=== PATIENT | female | born 1965 | race Caucasian/White ===

== ENCOUNTER 2023-02-15 13:07 | Outpatient (OUT) | payer BC, SELFPAY ==
--- NOTE | 2023-02-15 13:22 | ECG_ITS ---
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
--- NOTE | 2023-02-15 14:30 | P.GSHP_ITS ---
History of Present Illness History of Present Illness Chief complaint: complex endometrial hyperplasia with atypia Narrative: Patient presents for preadmission testing. The patient states she had an episode of vaginal bleeding and she has been in menopause for six years. She states she had a pelvic exam with her regional marketing manager and then had a transvaginal ultrasound which showed some thickening of the uterine lining. The patient denies any abdominal pain, nausea, vomiting, or any other complaints. Review of Systems ROS Narrative REVIEW OF SYSTEMS: Negative except as stated in HPI, ten or more systems reviewed. Constitutional: No fever , chills, weakness ENT: No sore throat or epistaxis Cardiovascular: No edema, chest pain, palpitations, or activity intolerance Respiratory: No shortness of breath, cough, or wheezing Musculoskeletal: No joint pain or swelling Gastrointestinal: No abdominal pain, constipation, diarrhea, or vomiting Genitourinary: No dysuria or hematuria Neurological: No numbness, tingling, weakness, or headache Psychiatric: No mood changes PFSH PFS Medical History (Updated 02/15/23 @ 14:05 by Shani Angel RN) Rotator cuff dysfunction ?M67.919 - Unspecified disorder of synovium and tendon, unspecified shoulder (ICD-10) Post-menopausal bleeding ?N95.0 - Postmenopausal bleeding (ICD-10) Hypertension ?I10 - Essential (primary) hypertension (ICD-10) Cervical disc herniation ?M50.20 - Other cervical disc displacement, unspecified cervical region (ICD- 10) Xanthelasma ?H02.60 - Xanthelasma of unspecified eye, unspecified eyelid (ICD-10) Tobacco dependence syndrome ?F17.200 - Nicotine dependence, unspecified, uncomplicated (ICD-10) Squamous cell carcinoma of skin ?C44.92 - Squamous cell carcinoma of skin, unspecified (ICD-10) Major depression ?F32.9 - Major depressive disorder, single episode, unspecified (ICD-10) Hyperlipidemia ?E78.5 - Hyperlipidemia, unspecified (ICD-10) Anxiety ?F41.9 - Anxiety disorder, unspecified (ICD-10) Iron deficiency anemia ?D50.9 - Iron deficiency anemia, unspecified (ICD-10) Anemia ?D64.9 - Anemia, unspecified (ICD-10) Vitamin D deficiency ?E55.9 - Vitamin D deficiency, unspecified (ICD-10) Multiple thyroid nodules ?E04.2 - Nontoxic multinodular goiter (ICD-10) Enlarged thyroid ?E04.9 - Nontoxic goiter, unspecified (ICD-10) Diabetes mellitus ?E11.9 - Type 2 diabetes mellitus without complications (ICD-10) Hypothyroid ?E03.9 - Hypothyroidism, unspecified (ICD-10) Gastroesophageal reflux disease with esophagitis ?K21.00 - Gastro-esophageal reflux disease with esophagitis, without bleeding (ICD-10) Dysphagia ?R13.10 - Dysphagia, unspecified (ICD-10) Essential hypertension ?I10 - Essential (primary) hypertension (ICD-10) Uterine fibroid ?D25.9 - Leiomyoma of uterus, unspecified (ICD-10) Thickened endometrium ?R93.89 - Abnormal findings on diagnostic imaging of other specified body structures (ICD-10) Complex endometrial hyperplasia with atypia ?N85.02 - Endometrial intraepithelial neoplasia [EIN] (ICD-10) Surgical History (Updated 02/15/23 @ 14:05 by Shani Angel RN) History of colonoscopy ?Z98.890 - Other specified postprocedural states (ICD-10) History of neurologic surgery ?Z98.890 - Other specified postprocedural states (ICD-10) H/O vascular surgery ?Z98.890 - Other specified postprocedural states (ICD-10) Hx of cardiac cath ?Z98.890 - Other specified postprocedural states (ICD-10) History of excision of lesion ?Z98.890 - Other specified postprocedural states (ICD-10) ?Z87.2 - Personal history of diseases of the skin and subcutaneous tissue (ICD-10) Hx of fusion of cervical spine ?Z98.1 - Arthrodesis status (ICD-10) Family History (Updated 02/15/23 @ 14:05 by Shani Angel, RACHEL) Other Family history of CHF (congestive heart failure) Family history of cancer Family history of diabetes mellitus Family history of hypertension Family history of stroke Heart disease Pulmonary embolism Social History (Updated 02/15/23 @ 13:39 by Shani Angel, RACHEL) Within the past year, how often did you have a drink containing alcohol: never Score interpretation: A score less than 3 is consistent with normal alcohol consumption. 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 Highest level of school completed/degree received: Associate degree: occupational, technical, vocational program Meds Home Medications and Allergies Home Medications Medication Instructions Recorded Confirmed Type bupropion HCl 300 mg 24 hr tablet, 300 mg PO DAILY 02/15/23 02/15/23 History extended release esomeprazole magnesium 20 mg 20 mg PO DAILY 02/15/23 02/15/23 History capsule,delayed release (Nexium) tirzepatide 5 mg/0.5 mL 7.5 mg subcut .weekly 02/15/23 02/15/23 History subcutaneous pen injector (Mounjaro) Allergies Allergy/AdvReac Type Severity Reaction Status Date / Time pravastatin AdvReac Severe muscle ache Verified 02/15/23 13:41 Exam Narrative Exam Narrative: Constitutional: Awake, alert, comfortable, well-appearing, nontoxic, interactive, vital signs as charted Head: Normocephalic, atraumatic Neck: Supple, normal appearance, normal range of motion, no meningeal signs, no lymphadenopathy Respiratory: No respiratory distress, breath sounds clear Cardiovascular: Regular rate and rhythm, strong and regular heart tones Abdomen: Nontender, normal bowel sounds, soft, no CVA tenderness Musculoskeletal: Normal gait, no swelling or edema Skin: No rashes or induration, no lesions, only visible skin inspected Neuro: No neurological deficits, normal sensation Psychiatric: Oriented ?3, normal affect Assessment and Plan Assessment and Plan (1) Post-menopausal bleeding: (2) Uterine fibroid: (3) Thickened endometrium: (4) Complex endometrial hyperplasia with atypia: Plan D and C, hysteroscopy, possible Myosure scheduled with Dr. Jones 02/23/2023. The patient had an abnormal EKG here in preadmission testing today showing a first- degree AV block, this was compared to her previous EKG from 2019 and there are changes noted. The EKG was faxed to Dr. Jones's office and the manager trade marketing was called and notified of the abnormal EKG. The patient has no dyspnea on exertion, shortness of breath, chest pain, or any cardiac complaints.
[2023-02-15 14:34] LABS: Anion Gap 9.9; BUN Creatinine Ratio 9.3; Calcium 8.9 mg/dL (8.5-10.1); Carbon Dioxide 30.1 mmol/L (21.0-32.0); Chloride 104 mmol/L (98-107); Estimated GFR (African America >60 (>=60); Estimated GFR (Non-African Ame 52 (>=60); Glucose 94 mg/dL (74-106); Sodium 140 mmol/L (136-145)
== END 2023-02-15 13:08 | disposition home or self-care (01) ==
PROVIDERS: PCP Family Medicine; Visit Provider Obstetrics & Gynecology
DX: Z01.810 Encounter for preprocedural cardiovascular examination (principal); Z01.812 Encounter for preprocedural laboratory examination; Z01.818 Encounter for other preprocedural examination; N85.02 Endometrial intraepithelial neoplasia [EIN]; R93.89 Abnormal findings on diagnostic imaging of other specified body structures; D25.9 Leiomyoma of uterus, unspecified
CPT/HCPCS: 80048; 93005; G0463

== ENCOUNTER 2023-03-16 08:45 | Outpatient (OUT) | payer OTHER, BC, SELFPAY ==
--- OUTSIDE RECORDS SUMMARY | 2023-03-16 08:48 | XMS_ITS | CCD ---
Author Name Unknown Address [address] [place] [address] Organization [facility] Care Team Providers Care Floor Care Technician Name Role Phone Isra Joiner Jr Attending Unavailable Isra Joiner Jr Admitting Unavailable Ai Tom Primary Care Unavailable AI TOM Primary Care Unavailable CURT ALBRIGHT Attending Unavailable LUZ ELENA PEREZ Attending Unavailable LUZ ELENA PEREZ Referring Unavailable AI TOM Primary Care Unavailable Allergies Allergy Classification Reported Allergen(s) Allergy Type Date of Onset Reaction(s) Facility (1 source) Pravastatin; Translations: [PRAVASTATIN] Drug Allergy 09-24-2020 [facility] Problems Problem Classification Problem Date Documented Da te Episodic/Chronic Gastrointestinal hemorrhage (2 sources) Rectal hemorrhage Onset: 02-25-2023 Episodic Noninfectious gastroenteritis (1 source) Noninfective gastroenteritis and colitis, unspecified; Translations: [Noninfective gastroenteritis and colitis, unspecified] Onset: 02-25-2023 Episodic Unclassified (1 source) Other specific joint derangements of right shoulder, not elsewhere classified; Translations: [Other specific joint derangements of right shoulder, not elsewhere classified] Onset: 03-31-2022 Results Test Name Value Interpretation Reference Range Facility CBC AND AUTO DIFFon 02-25-19 ABSOLUTE BASOPHIL 0.1 X10E9/L Normal 0.0-0.2 [facility] Comment on above: Performed By: #### C MP, 3040-3, 51024-0, CBCA #### [facility] ([id number]) [address] [facility], [place] [address] ABSOLUTE NEUTROPHIL 12.1 X10E9/L High 1.5-6.6 [facility] Comment on above: Performed By: #### C INOCENCIA, 3040-3, 40590-3, CBCA #### [facility] ([id number]) [address] [place] [address] 77284 Basophils/100 WBC (Bld) 0.6 % Normal [facility] Comment on above: Performed By: #### C INOCENCIA, 0-3, 84633-9, CBCA #### [facility] ([id number]) [address] [place] [address] 23299 Eosinophils (Bld) [#/Vol] 0.1 10*3/uL Normal 0.0-0.4 [facility] Comment on above: Performed By: #### C INOCENCIA, 3039-3, 29391-0, CBCA #### [facility] ([id number]) [address] [place] [address] 98025 Eosinophils/100 WBC (Bld) 0.8 % Normal [facility] Comment on above: Performed By: #### C INOCENCIA, 3039-3, 73767-4, CBCA #### [facility] ([id number]) [address] [place] [address] 99141 Erythrocyte distribution width (RBC) [Ratio] 13.3 % Normal 11.5-15.0 [facility] Comment on above: Performed By: #### C INOCENCIA, 0-3, 44455-8, CBCA #### [facility] ([id number]) [address] [place] [address] 92211 Hematocrit (Bld) [Volume fraction] 41.2 % Normal 35-47 [facility] Comment on above: Performed By: #### C INOCENCIA, 0-3, 59177-7, CBCA #### [facility] ([id number]) [address] [place] [address] 01476 Hemoglobin (Bld) [Mass/Vol] 14.0 g/dL Normal 11.7-15.5 [facility] Comment on above: Performed By: #### C INOCENCIA, 3039-3, 80239-8, CBCA #### [facility] ([id number]) [address] [place] [address] 60912 Lymphocytes (Bld) [#/Vol] 2.1 10*3/uL Normal 1.0-3.5 [facility] Comment on above: Performed By: #### C INOCENCIA, 3039-3, 47421-5, CBCA #### [facility] ([id number]) [address] [place] [address] 89122 Lymphocytes/100 WBC (Bld) 13.8 % Normal [facility] Comment on above: Performed By: #### C INOCENCIA, 3039-04, , CBCA #### [facility] ([id number]) [address] [place] [address] 10676 MCH (RBC) [Entitic mass] 29.7 pg Normal 27-34 [facility] Comment on above: Performed By: #### C INOCENCIA, 3039-04, 62441-7, CBCA #### [facility] ([id number]) [address] [place] [address] 25139 MCHC (RBC) [Mass/Vol] 34.0 g/dL Normal 32-36 [facility] Comment on above: Performed By: #### C INOCENCIA, 3, 08865-0, CBCA #### [facility] ([id number]) [address] [place] [address] 92280 MCV (RBC) [Entitic vol] 87 fL Normal 80-100 [facility] Comment on above: Performed By: #### C INOCENCIA, 3039-3, 68960-1, CBCA #### [facility] ([id number]) [address] [place] [address] 62839 Monocytes (Bld) [#/Vol] 0.9 10*3/uL Normal 0-0.9 [facility] Comment on above: Performed By: #### C INOCENCIA, 3040-3, 19225-6, CBCA #### [facility] ([id number]) [address] [place] [address] 26157 Monocytes/100 WBC (Bld) 6.1 % Normal [facility] Comment on above: Performed By: #### C INOCENCIA, 0-3, 94639-9, CBCA #### [facility] ([id number]) [address] [place] [address] 59129 Neutrophils/100 WBC (Bld) 78.7 % Normal [facility] Comment on above: Performed By: #### C INOCENCIA, 0-3, 19021-9, CBCA #### [facility] ([id number]) [address] [place] [address] [place] [address] Platelet mean volume (Bld) [Entitic vol] 8.1 fL Normal 7-12 [facility] Comment on above: Performed By: #### C INOCENCIA, 0-3, 96663-4, CBCA #### [facility] ([id number]) [address] [place] [address] 89793 Platelets (Bld) [#/Vol] 349 10*3/uL Normal 150-450 [facility] Comment on above: Performed By: #### C INOCENCIA, 0-3, 42556-7, CBCA #### [facility] ([id number]) [address] [place] [address] [place] [address] RBC COUNT 4.73 X10E12/L Normal 3.80-5.20 [facility] Comment on above: Performed By: #### C INOCENCIA, 3040-3, 62844-8, CBCA #### [facility] ([id number]) [address] [place] [address] 98604 WBC (Bld) [#/Vol] 15.4 10*3/uL High 4.0-11.0 [facility] Comment on above: Performed By: #### C INOCENCIA, 3040-3, 31425-3, CBCA #### [facility] ([id number]) [address] [place] [address] 77185 COMPREHENSIVE METABOLIC PANE Jordin 02-25-2023 Albumin [Mass/Vol] 4.3 g/dL Normal 3.2-5.3 [facility] Comment on above: Performed By: #### C INOCENCIA, 3040-3, 99392-8, CBCA #### [facility] ([id number]) [address] [place] [address] 07474 ALP [Catalytic activity/Vol] 47 U/L Normal 39-130 [facility] Comment on above: Performed By: #### C INOCENCIA, 3040-3, 32723-4, CBCA #### [facility] ([id number]) [address] [place] [address] 25978 ALT [Catalytic activity/Vol] 17 U/L Normal 0-31 [facility] Comment on above: Performed By: #### C INOCENCIA, 3040-3, 67149-4, CBCA #### [facility] ([id number]) [address] [place] [address] 40539 Anion gap [Moles/Vol] 9 mmol/L Normal 5-15 [facility] Comment on above: Performed By: #### C INOCENCIA, 3040-3, 48345-2, CBCA #### [facility] ([id number]) [address] [place] [address] 35407 AST [Catalytic activity/Vol] 19 U/L Normal 0-41 [facility] Comment on above: Performed By: #### C INOCENCIA, 3040-3, 70154-6, CBCA #### [facility] ([id number]) [address] [place] [address] 00999 Bilirubin [Mass/Vol] 0.8 mg/dL Normal 0.3-1.2 [facility] Comment on above: Performed By: #### C INOCENCIA, 3040-3, 19083-1, CBCA #### [facility] ([id number]) [address] [place] [address] 55452 Calcium [Mass/Vol] 9.3 mg/dL Normal 8.5-10.5 [facility] Comment on above: Performed By: #### C INOCENCIA, 0-3, 08007-8, CBCA #### [facility] ([id number]) [address] [place] [address] 36508 Chloride [Moles/Vol] 102 mmol/L Normal 98-109 [facility] Comment on above: Performed By: #### C INOCENCIA, 3039-3, 09144-4, CBCA #### [facility] ([id number]) [address] [place] [address] 95464 CO2 [Moles/Vol] 24 mmol/L Normal 22-32 [facility] Comment on above: Performed By: #### Georgi PRO, 0-3, 14619-7, CBCA #### [facility] ([id number]) [address] [place] [address] 06323 Creatinine [Mass/Vol] 0.87 mg/dL Normal 0.40-1.00 [facility] Comment on above: Result Comment: METH OD TRACEABLE TO IDMS STANDARD Performed By: #### C INOCENCIA, 3040-3, 18693-9, CBCA #### [facility] ([id number]) [address] [place] [address] 97333 GFR/1.73 sq M.predicted among non-blacks MDRD (S/P/Bld) [Vol rate/Area] 78 mL/min/{1.73_m2} Normal >59 [facility] Comment on above: Result Comment: Reported eGFR is based on the CKD-EPI 2020 equation that does not use a race coefficient. Performed By: #### C INOCENCIA, 3040-3, 57375-8, CBCA #### [facility] ([id number]) [address] [place] [address] 04313 Glucose [Mass/Vol] 105 mg/dL High 65-99 [facility] Comment on above: Performed By: #### C INOCENCIA, 0-3, 79057-9, CBCA #### [facility] ([id number]) [address] [place] [address] 95985 Potassium [Moles/Vol] 3.6 mmol/L Normal 3.5-5.0 [facility] Comment on above: Performed By: #### C INOCENCIA, 0-3, 84243-3, CBCA #### [facility] ([id number]) [address] [place] [address] 91471 Protein [Mass/Vol] 7.6 g/dL Normal 6.0-8.0 [facility] Comment on above: Performed By: #### C INOCENCIA, 3039-3, 21096-9, CBCA #### [facility] ([id number]) [address] [place] [address] 96685 Sodium [Moles/Vol] 135 mmol/L Normal 134-146 [facility] Comment on above: Performed By: #### C INOCENCIA, 3039-3, 04738-4, CBCA #### [facility] ([id number]) [address] [place] [address] 33023 Urea nitrogen [Mass/Vol] 9 mg/dL Normal 5-23 [facility] Comment on above: Performed By: #### C INOCENCIA, 3040-3, 05468-0, CBCA #### [facility] ([id number]) [address] [place] [address] ABDOMEN AND PELVIS W CONT on 02-25-2023 CT ABDOMEN AND PELVIS W CONT CT ABDOMEN AND PELVIS W CONT CT ABDOMEN AND PELVIS W CONT CLINICAL INFORMATION: 57 years old Female with rectal bleeding and abdominal cramping since 3:00 PM today. TECHNIQUE/PROCEDURE: CT Abdomen and Pelvis with intravenous contrast. All CT scans at this facility use dose modulation, iterative reconstruction, and/or weight based dosing when appropriate to reduce radiation dose to as low as reasonably achievable Contrast: 100 mL Omnipaque 300 Diagnostic quality: Satisfactory COMPARISON: CT abdomen and pelvis without contrast dated 09/01/2008. FINDINGS: Lower lung smith are clear. No pericardial effusion. No focal liver lesion. Gallbladder is present and unremarkable. No biliary dilatation. Adrenals, spleen and pancreas are unremarkable. Small hypoattenuating lesions within the left kidney that are too small to accurately characterize. No renal or ureteral calculi. No hydroureteronephrosis. Urinary bladder is unremarkable. Uterus is present and unremarkable. Mild calcification in the abdominal aorta and iliac arteries without focal dilation or aneurysm. There is narrowing of the proximal celiac trunk with mild poststenotic dilatation. SMA, renal arteries, EDUAR, and iliac arteries are patent. No hiatal hernia. Small and large bowel are normal in caliber. Nonspecific bowel gas pattern. Mild fecal burden. Appendix is present and unremarkable. There is bowel wall thickening and edema with mild pericolic stranding of the large bowel within the distal transverse and proximal descending colons. No evidence of acute diverticulitis. No pneumoperitoneum. Small fat-containing umbilical hernia. Anterior osteophytosis of the lower thoracic spine. Mild degenerative change at the L5-S1 level. No intra-abdominal lymphadenopathy. IMPRESSION: * Bowel wall thickening and edema with mild pericolic stranding of the tegmen of large bowel at the distal transverse and proximal descending colons which may represent infectious/inflammator y colitis. Approved by Resident Mik Madison DO on 02/25/2023 7:14 PM IDavid MD have personally reviewed the image(s) and agree with and/or edited the report Finalized by David Lara MD on 02/25/2023 7:46 PM Normal [facility] LIPASEon 02-25-2023 Lipase [Catalytic activity/Vol] 38 U/L Normal 17-40 [facility] Comment on above: Performed By: #### C , 3040-3, 63564-1, CBCA #### [facility] ([id number]) [address] [place] [address] 31022 Lactate (P shawna) [Moles/Vol]o n 02-25-2023 LACTATE W/REFLEX 1.0 mmol/L Normal 0.4-2.0 [facility] Comment on above: Result Comment: Result did not trigger repeat Lactate, re-order if needed. Performed By: #### C MP, 3040-3, 00323-7, CBCA #### [facility] ([id number]) [address] [place] [address] 51773 YVROSE FECAL OCCULT BLDon 02-25 Hemoglobin.gastroin testinal Ql (Stl) Positive Abnormal NEG [facility] Comment on above: Performed By: #### 2 335-8 #### [facility] ([id number]) [address] [place] [address] 39987 URN MACROSCOPIC NURon 2023 BILIRUBIN YVROSE Negative Normal NEG [facility] Comment on above: Performed By: #### N UM #### [facility] ([id number]) [address] [place] [address] 53650 BLOOD/HGB YVROSE Small Abnormal NEG [facility] Comment on above: Performed By: #### N UM #### [facility] ([id number]) [address] [place] [address] 68865 GLUCOSE YVROSE Negative Normal NEG [facility] Comment on above: Performed By: #### N UM #### [facility] ([id number]) [address] [place] [address] 13737 KETONES YVROSE Negative Normal NEG [facility] Comment on above: Performed By: #### N UM #### [facility] ([id number]) [address] [place] [address] 81263 LEUKOCYTE ESTERASE YVROSE Trace Abnormal NEG [facility] Comment on above: Performed By: #### N UM #### [facility] ([id number]) [address] [place] [address] 81690 NITRITE YVROSE Negative Normal NEG [facility] Comment on above: Performed By: #### N UM #### [facility] ([id number]) [address] [place] [address] 89629 PH YVROSE 6.0 Normal 5.0-8.5 [facility] Comment on above: Performed By: #### N UM #### [facility] ([id number]) [address] [place] [address] 27890 PROTEIN YVROSE Negative Normal NEG [facility] Comment on above: Performed By: #### N UM #### [facility] ([id number]) [address] [place] [address] 96405 SPECIFIC GRAVITY YVROSE 1.010 Normal 1.003-1.035 [facility] Comment on above: Performed By: #### N UM #### [facility] ([id number]) [address] [place] [address] 12935 UROBILINOGEN YVROSE 0.2 eu/dL Normal <1.1 [facility] Comment on above: Performed By: #### N UM #### [facility] ([id number]) [address] [place] [address] 46904 MR shoulder RT wo jojo 03-10 MR shoulder RT wo con [facility] [place] [address] MRI Report Signed Patient: Kalyani Ferreira MR#: [id number] : 1965 Acct:[id number] Age/Sex: 56 / F ADM Date: 03/31/22 Loc: MR Room: Type: [facility] Attending Dr: Isra Joiner Jr, DO Copies to: Isra Joiner Jr, DO Ordering Provider: Isra Joiner Jr, DO Date of Service: 03/31/22 MR/MR shoulder RT wo con: M24.811 MR RIGHT SHOULDER CLINICAL INFORMATION: Right shoulder pain with limited range of motion. COMPARISON: None. PROCEDURE: Axial, oblique coronal, and oblique sagittal long TR images of the shoulder were obtained. FINDINGS: ROTATOR CUFF AND ASSOCIATED STRUCTURES Biceps Tendon: There is increased T2 signal in the proximal long biceps tendon suggesting biceps tendinopathy. The tendon is grossly intact however. Rotator cuff: There is focal full-thickness tear of the supraspinatus tendon, predominantly affecting the articular surface. No tendon retraction is noted. There is edema along the bursal surface of the infraspinatus tendon suggesting tendinopathy. The infraspinatus tendon and subscapularis tendon are intact. Musculature: There is no muscular tear, contusion, or atrophy. Bursa: No bursal effusion or thickening is seen. OSSEOUS STRUCTURES Acromioclavicular joint: There are mild degenerative changes of the acromioclavicular joint. A type 2 acromion configuration is noted. There is no anterior or lateral acromial downsloping. Bones: No Hill-Sachs, reverse Hill-Sachs, or bony Bankart lesions are seen. There are no fractures or regions of abnormal bone marrow signal intensity. GLENOHUMERAL JOINT Joint: There is a small joint effusion. Cartilage: No focal hyaline cartilage defects are noted. Labrum: The labrum is not optimally evaluated. Other support structures: No capsular or ligamentous abnormality is seen. MR/MR shoulder RT wo con IMPRESSION: 1. There is focal full-thickness tear of the supraspinatus tendon, predominantly affecting the articular surface. No tendon retraction is noted. 2. There is edema along the bursal surface of the infraspinatus tendon suggesting tendinopathy. 3. There is increased T2 signal in the proximal long biceps tendon suggesting biceps tendinopathy. The tendon is grossly intact however. 4. There is a small glenohumeral joint effusion. Impression dictated by: Tulio Armstrong M.D.04/01/2022 12:27 PM Dictation Location: [place] [address] Transcribed By: [facility] 04/01/22 1227 Dictated By: Tulio Armstrong II, MD 04/01/22 1218 Signed By: 04/01/22 1227 Normal [facility] SCREENING MAMMOGRAM W/AZALEA, BILATERAL*on 07-09-2021 SCREENING MAMMOGRAM W/AZALEA, BILATERAL* COMPARISON: Dating back to April 02, 2020, March 11, 2019 and December 18, 2017 TECHNIQUE: 2D and 3D Tomosynthesis of the right and left breasts was performed. FINDINGS: Breast composition demonstrates scattered fibroglandular densities. Stable. No suspicious microcalcifications, asymmetry, architectural distortion or associated features are present. IMPRESSION: BI RADS 1 : NEGATIVE MAMMOGRAM Board Certified Radiologist. Accredited by the ACR and FDA. MAMMOGRAPHY IS VERY IMPORTANT TO YOUR HEALTH. THE CURRENT [place] [employer] AND [employer] GUIDELINES RECOMMENDS ANNUAL MAMMOGRAPHY BEGINNING AT AGE 40. THIS FACILITY USES A REMINDER SYSTEM TO ENSURE ALL PATIENTS RECEIVE REMINDER NOTIFICATIONS AT THE APPROPRIATE TIME BASED ON THE RECOMMENDATIONS OF THIS EXAM. Report reported and signed by Ottoniel Rodriguez on 07/09/2021 1419 Normal [facility] Tw[facility] XR Humerus Righton XR Humerus Right Please see shoulder report done on the same day. Report reported and signed by Ottoniel Rodriguez on 06/10/2021 1307 Normal [facility] Tw[facility] XR Shoulder Complete Right*o n 06-10-2021 XR Shoulder Complete Right* FINDINGS: Increased acromial humeral space consistent with a joint effusion. No displaced fracture. Several diagonal lucencies overlie the proximal humeral shaft likely artifact skin folds. Mild AC joint arthritis with a downsloping acromion. No AC separation or displaced fracture. Linear calcifications of the distal rotator cuff tendon near the humeral head insertion site. Unremarkable right chest. Distal cervical fusion hardware. IMPRESSION: 1. Joint effusion, no AC separation or displaced fracture. If the setting of trauma occult fracture and/or internal derangement should be considered. 2. Calcific rotator cuff tendinitis. Report reported and signed by Ottoniel Rodriguez on 06/10/2021 1307 Normal [facility] Twister Operator Encounters Encounter Date Encounter Type Care Provider Facility Start: 02-25-2023 End: 02-26-2023 Emergency department patient visit LUZ ELENA PEREZ [facility] Start: 02-25-2023 End: 02-25-2023 Emergency department patient visit AI Hayden VAISHALI [facility] Start: 03-31-2022 End: 03-31-2022 ambulatory [facility] Facility:[facility] Payers Date Payer Category Payer Self-pay 2010 Unknown [id number] 1965 Unknown [id number] [id number] [id number] 1965 Unknown [id number] 2.16.84 [id number] Unknown [id number] [id number] Clinical Note 07-09-2021 Note Date & Type Note Facility 07-09-2021 Note PROCEDURE: [facility] VCT 64. Without IV contrast, axial helical 1.25 mm slice thickness low dose images of the chest were performed for lung cancer screening. FINDINGS: No suspicious lung nodule, mass, parenchymal infiltrate or consolidation. Right mid chest 8 mm lung cyst. No pleural or pericardial effusion. No significant mediastinal, hilar or axillary lymphadenopathy. IMPRESSION: CATEGORY 1 : Negative. LUNG - RADS RECOMMENDATIONS Category 0 ??? IncompleteAdditional imaging needed. Category 1 & 2 ??? Negative/BenignContinue annual screening Category 3 ??? Probably Benign 6 month LDCT Category 4 A/B ??? Suspicious 4a- 3 month LDCT; PET/CT when > 8 mm solid component exists 4b- Chest CT w/wo contrast, PET/CT and/or biopsy Modifier (s)Clinically significant or potentially clinically significant findings ??? may add on to Category 0-4 Report reported and signed by Ottoniel Rodriguez on 07/09/2021 1441 [facility] Twister Operator Summary Purpose Family History No Family History Records FoundNo Family History Records FoundNo Family History Records Found Advance Directives No Advanced Directives Records FoundNo Advanced Directives Records FoundNo Advanced Directives Records Found Additional Source Comments INFORMATION SOURCE (unrecogn ized section and content) DATE CREATED AUTHOR 07/10/2021 [facility] DATE CREATED AUTHOR AUTHOR'S ORGANIZ ATION 04/07/2022 [facility] DATE CREATED AUTHOR AUTHOR'S ORGANIZ ATION 02/26/2023 [facility] FOR RECORDS PERTAINING TO PATIENTS WHO ARE OR HAVE BEEN ENROLLED IN A CHEMICAL DEPENDENCY/SUBSTANCEABUSE PROGRAM, SOME INFORMATION MAY BE OMITTED. This clinical summary was aggregated from multiple sources. Caution should be exercised in using it in the provision of clinical care. This summary normalizes information from multiple sources, and as a consequence, information in this document may materially change the coding, format and clinical context of patient data. In addition, data may be omitted in some cases. CLINICAL DECISIONS SHOULD BE BASED ON THE PRIMARY CLINICAL RECORDS. [facility]. provides no warranty or guarantee of the accuracy or completeness of information in this document.
== END 2023-03-16 08:46 | disposition home or self-care (01) ==
LOC: PST 08:45
PROVIDERS: PCP Family Medicine; Visit Provider Obstetrics & Gynecology
DX: Z01.818 Encounter for other preprocedural examination (principal); N85.02 Endometrial intraepithelial neoplasia [EIN]; R93.89 Abnormal findings on diagnostic imaging of other specified body structures; D25.9 Leiomyoma of uterus, unspecified; E11.9 Type 2 diabetes mellitus without complications; D64.9 Anemia, unspecified

== ENCOUNTER 2023-03-31 06:09 | Day surgery (SDC) | payer BC, SELFPAY ==
[2023-02-15 13:44] VITALS: BP 114/69; PULSE 74; RESP 16; TEMP 36.3; O2SAT 97; BMI 25.6
--- OUTSIDE RECORDS SUMMARY | 2023-03-31 06:11 | XMS_ITS | CCD ---
Author Name Unknown Address [address] [place] [address] [address] [place] [id number] Organization [facility] Care Team Providers Care Data Warehouse Specialist Name Role Phone Isra Joiner Jr Attending Unavailable Isra Joiner Jr Admitting Unavailable Ai Tom Primary Care Unavailable AI TOM Primary Care Unavailable CURT ALBRIGHT Attending Unavailable LUZ ELENA PEREZ Attending Unavailable LUZ ELENA PEREZ Referring Unavailable AI TOM Primary Care Unavailable AMBER FLORENTINO Attending Unavailable VAISHALI AI F Referring Unavailable VAISHALI AI F Primary Care Unavailable Allergies Allergy Classification Reported Allergen(s) Allergy Type Date of Onset Reaction(s) Facility (1 source) Pravastatin; Translations: [PRAVASTATIN] Drug Allergy 09-24-2020 [facility] Problems Problem Classification Problem Date Documented Da te Episodic/Chronic Essential hypertension (1 source) Essential (primary) hypertension; Translations: [Essential (primary) hypertension] Onset: 03-13-2023 Chronic Gastrointestinal hemorrhage (2 sources) Rectal hemorrhage Onset: 02-25-2023 Episodic Heart valve disorders (1 source) Nonrheumatic tricuspid (valve) insufficiency; Translations: [Nonrheumatic tricuspid (valve) insufficiency] Onset: 03-13-2023 Chronic Noninfectious gastroenteritis (1 source) Noninfective gastroenteritis and colitis, unspecified; Translations: [Noninfective gastroenteritis and colitis, unspecified] Onset: 02-25-2023 Episodic Unclassified (1 source) Other specific joint derangements of right shoulder, not elsewhere classified; Translations: [Other specific joint derangements of right shoulder, not elsewhere classified] Onset: 03-31-2022 Unclassified (1 source) New Patient Onset: 03-13-2023 Results Test Name Value Interpretation Reference Range Facility CBC AND AUTO DIFFon 02-25-19 ABSOLUTE BASOPHIL 0.1 X10E9/L Normal 0.0-0.2 [facility] Comment on above: Performed By: #### Georgi MOTT, , 3, CMP #### [facility] ([id number]) [address] [place] [address] 29315 ABSOLUTE NEUTROPHIL 12.1 X10E9/L High 1.5-6.6 [facility] Comment on above: Performed By: #### Georgi MOTT, , 3039-04, CMP #### [facility] ([id number]) [address] [place] [address] 38086 Basophils/100 WBC (Bld) 0.6 % Normal [facility] Comment on above: Performed By: #### Georgi MOTT, , 3039-04, CMP #### [facility] ([id number]) [address] [place] [address] 01971 Eosinophils (Bld) [#/Vol] 0.1 10*3/uL Normal 0.0-0.4 [facility] Comment on above: Performed By: #### Georgi MOTT, , 3039-04, CMP #### [facility] ([id number]) [address] [place] [address] 26661 Eosinophils/100 WBC (Bld) 0.8 % Normal [facility] Comment on above: Performed By: #### Georgi MOTT, , 3039-04, CMP #### [facility] ([id number]) [address] [place] [address] 67489 Erythrocyte distribution width (RBC) [Ratio] 13.3 % Normal 11.5-15.0 [facility] Comment on above: Performed By: #### Georgi MOTT, , 3, CMP #### [facility] ([id number]) [address] [place] [address] 07774 Hematocrit (Bld) [Volume fraction] 41.2 % Normal 35-47 [facility] Comment on above: Performed By: #### Georgi MOTT, , 3, CMP #### [facility] ([id number]) [address] [place] [address] 39586 Hemoglobin (Bld) [Mass/Vol] 14.0 g/dL Normal 11.7-15.5 [facility] Comment on above: Performed By: #### Georgi MOTT, , 3, CMP #### [facility] ([id number]) [address] [place] [address] 79526 Lymphocytes (Bld) [#/Vol] 2.1 10*3/uL Normal 1.0-3.5 [facility] Comment on above: Performed By: #### Georgi MOTT, , 3039-04, CMP #### [facility] ([id number]) [address] [place] [address] 09211 Lymphocytes/100 WBC (Bld) 13.8 % Normal [facility] Comment on above: Performed By: #### Georgi MOTT, , 3039-04, CMP #### [facility] ([id number]) [address] [place] [address] 15744 MCH (RBC) [Entitic mass] 29.7 pg Normal 27-34 [facility] Comment on above: Performed By: #### Georgi MOTT, , 3, CMP #### [facility] ([id number]) [address] [place] [address] 52897 MCHC (RBC) [Mass/Vol] 34.0 g/dL Normal 32-36 [facility] Comment on above: Performed By: #### Georgi MOTT, , 3, CMP #### [facility] ([id number]) [address] [place] [address] 97096 MCV (RBC) [Entitic vol] 87 fL Normal 80-100 [facility] Comment on above: Performed By: #### Georgi MOTT, 85306-8, 304-3, CMP #### [facility] ([id number]) [address] [place] [address] 34184 Monocytes (Bld) [#/Vol] 0.9 10*3/uL Normal 0-0.9 [facility] Comment on above: Performed By: #### Georgi MOTT, 22056-5, 3039-3, CMP #### [facility] ([id number]) [address] [place] [address] 18513 Monocytes/100 WBC (Bld) 6.1 % Normal [facility] Comment on above: Performed By: #### Georgi MOTT, 00144-4, 3039-3, CMP #### [facility] ([id number]) [address] [place] [address] 24984 Neutrophils/100 WBC (Bld) 78.7 % Normal [facility] Comment on above: Performed By: #### Georgi MOTT, 96035-5, 3039-3, CMP #### [facility] ([id number]) [address] [place] [address] 45747 Platelet mean volume (Bld) [Entitic vol] 8.1 fL Normal 7-12 [facility] Comment on above: Performed By: #### Georgi MOTT, 35850-8, 3039-3, CMP #### [facility] ([id number]) [address] [place] [address] 91125 Platelets (Bld) [#/Vol] 349 10*3/uL Normal 150-450 [facility] Comment on above: Performed By: #### Georgi MOTT, 39733-3, 3040-3, CMP #### [facility] ([id number]) [address] [place] [address] 83118 RBC COUNT 4.73 X10E12/L Normal 3.80-5.20 [facility] Comment on above: Performed By: #### C BCA, 81767-9, 3040-3, CMP #### [facility] ([id number]) [address] [place] [address] 02333 WBC (Bld) [#/Vol] 15.4 10*3/uL High 4.0-11.0 [facility] Comment on above: Performed By: #### C BCA, 63662-9, 3040-3, CMP #### [facility] ([id number]) [address] [place] [address] 38881 COMPREHENSIVE METABOLIC PANE Jordin 02-25-2023 Albumin [Mass/Vol] 4.3 g/dL Normal 3.2-5.3 [facility] Comment on above: Performed By: #### C BCA, 04138-0, 3040-3, CMP #### [facility] ([id number]) [address] [place] [address] 72873 ALP [Catalytic activity/Vol] 47 U/L Normal 39-130 [facility] Comment on above: Performed By: #### C BCA, 17294-4, 3040-3, CMP #### [facility] ([id number]) [address] [place] [address] 71670 ALT [Catalytic activity/Vol] 17 U/L Normal 0-31 [facility] Comment on above: Performed By: #### C BCA, 31667-5, 3040-3, CMP #### [facility] ([id number]) [address] [place] [address] 12898 Anion gap [Moles/Vol] 9 mmol/L Normal 5-15 [facility] Comment on above: Performed By: #### C BCA, 33932-7, 3040-3, CMP #### [facility] ([id number]) [address] [place] [address] 87711 AST [Catalytic activity/Vol] 19 U/L Normal 0-41 [facility] Comment on above: Performed By: #### C BCA, 45148-4, 3040-3, CMP #### [facility] ([id number]) [address] [place] [address] 54467 Bilirubin [Mass/Vol] 0.8 mg/dL Normal 0.3-1.2 [facility] Comment on above: Performed By: #### C BCA, 18592-0, 0-3, CMP #### [facility] ([id number]) [address] [place] [address] 14018 Calcium [Mass/Vol] 9.3 mg/dL Normal 8.5-10.5 [facility] Comment on above: Performed By: #### C TIERA, 78355-0, 3039-3, CMP #### [facility] ([id number]) [address] [place] [address] 19064 Chloride [Moles/Vol] 102 mmol/L Normal 98-109 [facility] Comment on above: Performed By: #### C TIERA, 67650-7, 3039-3, CMP #### [facility] ([id number]) [address] [place] [address] 69177 CO2 [Moles/Vol] 24 mmol/L Normal 22-32 [facility] Comment on above: Performed By: #### C BCA, 62842-0, 3039-3, CMP #### [facility] ([id number]) [address] [place] [address] 27071 Creatinine [Mass/Vol] 0.87 mg/dL Normal 0.40-1.00 [facility] Comment on above: Result Comment: METH OD TRACEABLE TO IDMS STANDARD Performed By: #### C TIERA, 90673-0, 3040-3, CMP #### [facility] ([id number]) [address] [place] [address] 37381 GFR/1.73 sq M.predicted among non-blacks MDRD (S/P/Bld) [Vol rate/Area] 78 mL/min/{1.73_m2} Normal >59 [facility] Comment on above: Result Comment: Reported eGFR is based on the CKD-EPI 2020 equation that does not use a race coefficient. Performed By: #### C TIERA, 07585-5, 3039-3, CMP #### [facility] ([id number]) [address] [place] [address] 50040 Glucose [Mass/Vol] 105 mg/dL High 65-99 [facility] Comment on above: Performed By: #### C TIERA, , 3, CMP #### [facility] ([id number]) [address] [place] [address] 42325 Potassium [Moles/Vol] 3.6 mmol/L Normal 3.5-5.0 [facility] Comment on above: Performed By: #### C TIERA, , 3039-04, CMP #### [facility] ([id number]) [address] [place] [address] 16399 Protein [Mass/Vol] 7.6 g/dL Normal 6.0-8.0 [facility] Comment on above: Performed By: #### C TIERA, 58649-5, 3, CMP #### [facility] ([id number]) [address] [place] [address] 85609 Sodium [Moles/Vol] 135 mmol/L Normal 134-146 [facility] Comment on above: Performed By: #### C TIERA, 00721-8, 3, CMP #### [facility] ([id number]) [address] [place] [address] 70167 Urea nitrogen [Mass/Vol] 9 mg/dL Normal 5-23 [facility] Comment on above: Performed By: #### C TIERA, 39988-1, 3040-3, [facility] #### [facility] ([id number]) [address] [place] [address], [place] [address] CT ABDOMEN AND PELVIS W CONT on [...] Mik Madison DO on 02/25/2023 7:14 PM I, David Lara MD have personally reviewed the image(s) and agree with and/or edited the report Finalized by David Lara MD on 02/25/2023 7:46 PM Normal [facility] LIPASEon 02-25-2023 Lipase [Catalytic activity/Vol] 38 U/L Normal 17-40 [facility] Comment on above: Performed By: #### C TIERA, 71911-2, 3040-3, CMP #### [facility] ([id number]) [address] [place] [address] 43878 Lactate (P shawna) [Moles/Vol]o n 02-25-2023 LACTATE W/REFLEX 1.0 mmol/L Normal 0.4-2.[address] [facility] Comment on above: Result Comment: Result did not trigger repeat Lactate, re-order if needed. Performed By: #### C TIERA, 02435-4, 3040-3, CMP #### [facility] ([id number]) [address] [place] [address] 57149 YVROSE FECAL OCCULT BLDon 02-25 Hemoglobin.gastroin testinal Ql (Stl) Positive Abnormal NEG [facility] Comment on above: Performed By: #### 2 335-8 #### [facility] ([id number]) [address] [place] [address] 93439 URN MACROSCOPIC NURon 2023 BILIRUBIN YVROSE Negative Normal NEG [facility] Comment on above: Performed By: #### N UM #### [facility] ([id number]) [address] [place] [address] 43845 BLOOD/HGB YVROSE Small Abnormal NEG [facility] Comment on above: Performed By: #### N UM #### [facility] ([id number]) [address] [place] [address] 65728 GLUCOSE YVROSE Negative Normal NEG [facility] Comment on above: Performed By: #### N UM #### [facility] ([id number]) [address] [place] [address] 23420 KETONES YVROSE Negative Normal NEG [facility] Comment on above: Performed By: #### N UM #### [facility] ([id number]) [address] [place] [address] 98473 LEUKOCYTE ESTERASE YVROSE Trace Abnormal NEG [facility] Comment on above: Performed By: #### N UM #### [facility] ([id number]) [address] [place] [address] 94716 NITRITE YVROSE Negative Normal NEG [facility] Comment on above: Performed By: #### N UM #### [facility] ([id number]) [address] [place] [address] 36135 PH YVROSE 6.0 Normal 5.0-8.5 [facility] Comment on above: Performed By: #### N UM #### [facility] ([id number]) [address] [place] [address] 96596 PROTEIN YVROSE Negative Normal NEG [facility] Comment on above: Performed By: #### N UM #### [facility] ([id number]) [address] [place] [address] 13459 SPECIFIC GRAVITY YVROSE 1.010 Normal 1.003-1.035 [facility] Comment on above: Performed By: #### N UM #### [facility] ([id number]) [address] [place] [address] [place] [address] UROBILINOGEN YVROSE 0.2 eu/dL Normal <1.[address] [facility] Comment on above: Performed By: #### N UM #### [facility] ([id number]) [address] [place] [address] 06545 MR shoulder RT wo conon 02- MR shoulder RT wo con [facility] [address] [address] MRI Report Signed Patient: Kalyani Ferreira MR#: [id number] : 1965 Acct:[id number] Age/Sex: 56 / F ADM Date: 03/31/22 Loc: Room: Type: [facility] Attending Dr: Isra Joiner Jr, DO [...] Tulio Armstrong M.D.04/01/2022 12:27 PM Dictation Location: [place] [address] Transcribed By: [facility] 04/01/22 1227 Dictated By: Tulio Armstrong II, MD 04/01/22 1218 Signed By: 04/01/22 1227 Normal [facility] SCREENING MAMMOGRAM W/AZALEA, BILATERAL*on 07-09-2021 SCREENING MAMMOGRAM [...] VERY IMPORTANT TO YOUR HEALTH. THE CURRENT [employer] GUIDELINES RECOMMENDS ANNUAL MAMMOGRAPHY BEGINNING AT AGE 40. THIS FACILITY USES A REMINDER SYSTEM TO ENSURE ALL PATIENTS RECEIVE REMINDER NOTIFICATIONS AT THE APPROPRIATE TIME BASED ON THE RECOMMENDATIONS OF THIS EXAM. Report reported and signed by Ottoniel Rodriguez on 07/09/2021 1419 Normal [facility] [employer] XR Humerus Righton XR Humerus Right Please see shoulder report done on the same day. Report reported and signed by Ottoniel Rodriguez on 06/10/2021 1307 Normal [facility] Licensed Optical Dispenser XR Shoulder Complete Right*o n 06-10-2021 XR [...] by Ottoniel Rodriguez on 06/10/2021 1307 Normal [facility] Licensed [employer] Disp[employer]er Encounters Encounter Date Encounter Type Care Provider Facility Start: 03-13-2023 End: 03-13-2023 ambulatory [facility] Start: 03-12-2023 Encounter for prepro cedural cardiovascular examination [facility] Start: 02-25-2023 End: 02-26-2023 Emergency department patient visit LUZ ELENA PEREZ [facility] Start: 02-25-2023 End: 02-25-2023 Emergency department patient visit AI TOM [facility] Start: 03-31-2022 End: 03-31-2022 ambulatory [facility] Facility:[facility] Payers Date Payer Category Payer Self-pay 2010 Unknown [id number] 1965 Unknown [id number] 2.16.8 [id number] 1965 Unknown [id number] 2.16.84 [id number] 1965 Unknown [id number] 2.16.84 [id number] Unknown [id number] 2.16.8 [id number] Clinical Note 07-09-2021 Note Date & Type Note Facility 07-09-2021 Note PROCEDURE: Vaddio VCT 64. Without IV contrast, axial helical [...] signed by Ottoniel Rodriguez on 07/09/2021 1441 [facility] Licensed Optical [employer] Summary Purpose Family History No Family History Records FoundNo Family History Records FoundNo Family History Records Found Advance Directives No Advanced Directives Records FoundNo Advanced Directives Records FoundNo Advanced Directives Records Found Additional Source Comments INFORMATION SOURCE (unrecogn ized section and content) DATE CREATED AUTHOR 07/10/2021 [facility] dical Specialist DATE CREATED AUTHOR AUTHOR'S ORGANIZ ATION 04/07/2022 [facility] DATE CREATED AUTHOR AUTHOR'S ORGANIZ ATION 03/17/2023 [facility] FOR RECORDS PERTAINING TO PATIENTS WHO ARE [...] BE BASED ON THE PRIMARY CLINICAL RECORDS. [facility] [employer] provides no warranty or guarantee of the accuracy or completeness of information in this document.
[2023-03-31 06:18] LABS: Basophils Absolute Auto 0.1 10^3/uL (0.0-0.1); Basophils Percent Auto 1.3 % (0.2-2.0); Eosinophils Absolute Auto 0.2 10^3/uL (0.0-0.7); Eosinophils Percent Auto 2.7 % (0.9-7.0); Hematocrit 38.5 % (36.0-48.0); Hemoglobin 12.8 g/dL (12.0-16.0); Immature Granulocytes Abs Auto 0.02 10^3/uL (0.00-0.03); Immature Granulocytes Pct Auto 0.2 % (0.0-0.5); Lymphocytes Absolute Auto 2.8 10^3/uL (1.2-3.8); Mean Corpuscular HGB Conc 33.2 g/dL (29.9-35.2); Mean Corpuscular Hemoglobin 29.8 pg (26.7-34.0); Mean Corpuscular Volume 89.5 fL (81.0-99.0); Mean Platelet Volume 9.2 fL (9.5-13.5); Monocytes Absolute Auto 0.7 10^3/uL (0.3-0.8); Monocytes Percent Auto 7.9 % (1.7-12.0); Neutrophils Absolute Auto 5.1 10^3/uL (1.4-6.5); Neutrophils Percent Auto 56.9 % (43.0-75.0); Platelet Count 255 10^3/uL (150-450); Red Cell Distribution Width 12.6 % (11.0-15.0)
[2023-03-31 06:20] VITALS: BP 105/67; PULSE 77; RESP 20; TEMP 36.4; O2SAT 98; BMI 25.2
[2023-03-31 06:30] LABS: Glucometer 99 mg/dL (74-106)
[2023-03-31] MEDS: LACTATED RINGER'S SOLUTION 1,000 ML 50 ML IV (06:39)
--- NOTE | 2023-03-31 08:22 | P.ON_ITS ---
Brief Operative Note Date of procedure: 03/31/23 Pre-op diagnosis: thickened endometrium, complex hyperplasia with atypia Post-op diagnosis: same as pre-op Procedure: NAME OF PROCEDURE: [ D&c hysteroscopy with myosure] findings-endometrial polyp, suspicious looking endometrium, no fibroids PROCEDURE: The patient was taken back to the Operating Room where she was prepped and draped in normal sterile fashion after being placed under general anesthesia without difficulty. She was also placed in the dorsal lithotomy position. A weighted speculum was placed in the patient?s vagina. The anterior lip of the cervix was identified and grasped with a single tooth tenaculum. The patient?s uterus was then sounded roughly to [? 8] cm. The patient was then gently dilated using Hegar dilators. The hysteroscope was passed through the patient?s cervix into the uterus. Both ostia were identified. fluffy appearing endometrium. No gross evidence of malignancy, no gross evidence of polyps or fibroids. The m yosure apparatus was placed through the scope, The myosure was engaged and endometrial curretting were removed along with endometrial polyp, The hysteroscope was then removed from the uterus. The endometrial curettings were sent out to pathology. The single tooth tenaculum was then removed from the patient's anterior lip of the cervix where excellent hemostasis was noted. All instruments were removed from the patient?s vagina. The patient tolerated the procedure well. Sponge, lap and needle counts were correct times two. The patient was taken to the Recovery Room in stable condition.Room in stable condition. Anesthesia: GETA Surgeon: Arben Jones Estimated blood loss (mL): 5 Pathology: other (polyp and endometrial currettings) Condition: stable Disposition: PACU Urinary Catheter Management Urinary Catheter Management Urethral: Cath placed during this visit: no
[2023-03-31 08:27] VITALS: BP 87/59; PULSE 75; RESP 14; TEMP 36.2; O2SAT 95
[2023-03-31 08:42] VITALS: BP 84/47; PULSE 68; RESP 16; O2SAT 97
[2023-03-31 08:57] VITALS: BP 84/53; PULSE 62; RESP 16; O2SAT 97
[2023-03-31] MEDS: LACTATED RINGER'S SOLUTION 1,000 ML 150 ML IV (09:00)
[2023-03-31 09:27] VITALS: BP 115/64; PULSE 64; RESP 20; O2SAT 98
--- NOTE | 2023-03-31 09:42 | PC.NURSE ---
pt voids without difficulty,few small clots noted in toilet. pt ambulates with stand by assistance
== END 2023-03-31 09:43 | disposition home or self-care (01) ==
PROVIDERS: PCP Family Medicine; Visit Provider Obstetrics & Gynecology
PROC: (CPT 952; principal; 2023-03-31 07:30)
DX: N85.02 Endometrial intraepithelial neoplasia [EIN] (principal); R93.89 Abnormal findings on diagnostic imaging of other specified body structures; D25.9 Leiomyoma of uterus, unspecified; E11.9 Type 2 diabetes mellitus without complications; N95.0 Postmenopausal bleeding; E78.5 Hyperlipidemia, unspecified; D50.9 Iron deficiency anemia, unspecified; F41.9 Anxiety disorder, unspecified; E55.9 Vitamin D deficiency, unspecified; E04.2 Nontoxic multinodular goiter; E03.9 Hypothyroidism, unspecified; K21.00 Gastro-esophageal reflux disease with esophagitis, without bleeding; I10 Essential (primary) hypertension; Z98.1 Arthrodesis status; F17.210 Nicotine dependence, cigarettes, uncomplicated; Z79.84 Long term (current) use of oral hypoglycemic drugs
CPT/HCPCS: 58558; 36415; 82948; 85025; 88305; 99999; J1094; J2704